=== PATIENT | male | born 1970 | race Caucasian/White ===

== ENCOUNTER → 2023-05-28 | Outpatient (CLI) | payer BC ==
[~2023-05-28] MED LIST: Iohexol 300 - 100 ML VIAL IV ONE; NAPROXEN220 MG PO; NO HOME MEDICATIONS; NORCO PO; NS 100 ML IV SCH
== END ==
LOC: COL.RAD 09:20
DX: J84.10 Pulmonary fibrosis, unspecified (principal); J47.9 Bronchiectasis, uncomplicated; N50.811 Right testicular pain
CPT/HCPCS: Q9967

== ENCOUNTER 2023-08-15 10:22 | Day surgery (SDC) | payer BC ==
[~2023-08-15] VITALS: Ht 175.3 cm; Wt 78.6 kg
[~2023-08-15 10:22] MED LIST changes: -Iohexol 300 - 100 ML VIAL IV ONE; +LR 1,000 ML IV SCH; -NS 100 ML IV SCH
--- NOTE | 2023-08-15 10:39 | NUR ---
PATIENT ADMITTED TO ROOM 7 AMBULATORY ACCOMPANIED BY SPOUSE. ORIENTED TO ROOM AND VOICES UNDERSTANDING OF SURGERY AND ANESTHESIA. ADMITTED TO HAVING COFFEE AT 0800 WITH CREAM IN IT. TY Fuentes CRNA NOTIFIED AND SURGERY WILL BE DELAYED UNTIL 1400. PATIENT INFORMED AND VOICES UNDERSTANDING OF THIS. RESTING ON CART. SPOUSE HAS LEFT AND WILL COME BACK. IVF STARTED AND ALLOWED TO REST.
[2023-08-15 13:12] VITALS: BP 113/63; PULSE 51; TEMP 97.9
[2023-08-15] MEDS ORDERED: MULTI VITAMINS1 TAB PO (13:16)
[2023-08-15] MEDS ORDERED: TURMERIC500 MG PO (13:21)
[2023-08-15] MEDS ORDERED: fentaNYL 50 MCG/ML 5 ML VIAL ONE (13:50)
[2023-08-15] MEDS ORDERED: Lidocaine PF 2% (20 MG/ML) 5 ML VIAL ONE (13:51)
[2023-08-15] MEDS ORDERED: Atracurium 50 MG/5 ML VIAL IV ONE (13:52)
[2023-08-15] MEDS ORDERED: HYDROmorphone 1 MG/1 ML SYRINGE [PACU/SDC ONLY] IV PRN (14:45)
[2023-08-15] MEDS ORDERED: fentaNYL 50 MCG/ML 1 ML SYRINGE/VIAL [PACU/SDC ONLY] IV PRN (14:45)
[2023-08-15] MEDS ORDERED: Ondansetron 4 MG/2 ML VIAL IV PRN ×2 (14:45→16:30)
[2023-08-15] MEDS ORDERED: hydrALAZINE 20 MG/ML 1 ML VIAL IV PRN (14:45)
[2023-08-15] MEDS ORDERED: droPERidol 2.5 MG/ML 2 ML VIAL IV PRN (14:45)
[2023-08-15] MEDS ORDERED: dexAMETHasone 10 MG/ML VIAL ONE (14:51)
[2023-08-15] MEDS ORDERED: Ketorolac 30 MG/ML VIAL ONE (15:04)
[2023-08-15] MEDS ORDERED: Ondansetron 4 MG/2 ML VIAL ONE (15:04)
[2023-08-15] MEDS ORDERED: Glycopyrrolate 0.2 MG/ML 1 ML VIAL ONE (15:13)
[2023-08-15] MEDS ORDERED: Topical Skin Adhesive 1 EACH (1 ML) TOP ONE (16:00)
[2023-08-15] MEDS ORDERED: Ibuprofen 600 MG TAB PO PRN (16:30)
[2023-08-15] MEDS ORDERED: Morphine 4 MG/ML VIAL IV PRN (16:30)
[2023-08-15] MEDS ORDERED: NORCO 325 MG-51 TAB PO (16:33)
[2023-08-15] MEDS ORDERED: MOTRIN 600600 MG/TAB PO (16:33)
[2023-08-15 17:00] VITALS: BP 110/59; PULSE 46; TEMP 97.9
[2023-08-15 17:15] VITALS: BP 108/60; PULSE 48
[2023-08-15 17:25] VITALS: BP 106/62; PULSE 54
--- NOTE | 2023-08-15 17:35 | NUR ---
1700 RETURNS TO ROOM 7 PER CART. AWAKE, ALERT. RESP UNLABORED. HOB ELEVATED 60 DEGREES. VTIAL SIGNS OBTAINED. ABD SOFT. INCISION X 3 SITES INTACT WITHOUT REDNESS OR DRAINAGE. REPORTS MILD DISCOMFORT. CALL LIGHT AT SIDE. IN ROOM 1715 TOLERATES WATER WITHOUT NAUSEA. 1720 DISCHARGE INSTRUCTIONS REVIEWED. PATIENT VERBALIZES UNDERSTANDING. COPY PROVIDED IN DISCHARGE FOLDER. REPORTS MILD ABD DISCOMFORT. DENIES NEED FOR PAIN MED 1727 SITS ON EDGE OF CART. DRESSES SELF WITH AT SIDE
== END 2023-08-15 17:38 | disposition home or self-care (01) ==
LOC: SDCO 10:22
DX: K40.90 Unilateral inguinal hernia, without obstruction or gangrene, not specified as recurrent (principal); N50.811 Right testicular pain; K21.9 Gastro-esophageal reflux disease without esophagitis
CPT/HCPCS: C1781; J0690; J1100; J1790; J1885; J2405; J2704; J3010